=== PATIENT | female | born 1995 | race African-American/Black ===

== ENCOUNTER 2018-04-04 21:18 | Emergency (ER) | payer BC | END 2018-04-04 22:37 | disposition home or self-care (01) | LOC: ER 22:37 | DX: J02.9 Acute pharyngitis, unspecified (principal) | CPT/HCPCS: 99283 ==

== ENCOUNTER 2018-04-22 21:14 | Emergency (ER) | payer BC ==
[~2018-04-22] VITALS: Ht 160 cm; Wt 72.6 kg
[~2018-04-22 21:14] MED LIST: AMOX1TAB61 PO; PRED-220 PO
[2018-04-22] MEDS ORDERED: IV NORMAL SALINE 1000ML BAG 1,000 ML IV ONE (22:00)
[2018-04-22] MEDS ORDERED: DEXAMETHASONE SOD PHOS 4 MG/ML VIAL IV ONE (22:00)
[2018-04-22 22:23] LABS: BASO # 0.1 x10^3/uL (0.0-0.2); BASO % 0 % (0-3); EOS # 0.1 x10^3/uL (0.0-0.7); EOS % 1 % (0-3); HEMATOCRIT 38.6 % (36.0-47.0); HEMOGLOBIN 12.9 g/dL (12.0-15.5); LYMPH % 24 % (24-48); MEAN CORPUSCULAR HEMOGLOBIN 27 pg (25-35); MEAN CORPUSCULAR HGB CONC 34 g/dL (31-37); MEAN CORPUSCULAR VOLUME 81 fL (79-100); MONO # 1.2 x10^3/uL (0.0-1.1); MONO % 10 % (0-9); NEUT # 7.9 x10^3uL (1.8-7.7); NEUT % 65 % (31-73); PLATELET COUNT 257 x10^3/uL (140-400); RED BLOOD COUNT 4.77 x10^6/uL (3.50-5.40); RED CELL DISTRIBUTION WIDTH 14.7 % (11.5-14.5); WHITE BLOOD COUNT 12.3 x10^3/uL (4.0-11.0)
[2018-04-22 22:33] LABS: CALCIUM 9.7 mg/dL (8.5-10.1); CREATININE 1.1 mg/dL (0.6-1.0); GFR 76.6; POTASSIUM 3.6 mmol/L (3.5-5.1)
--- NOTE | 2018-04-22 22:35 | RAD ---
Indication: Soft tissue neck pain status post tonsillectomy. Trouble swallowing. TECHNIQUE: AP and lateral views of the neck soft tissue COMPARISON: None FINDINGS: The retropharyngeal soft tissue is within normal limits. No emphysema seen. No radiopaque foreign body. The air column is patent. Visualized apices are clear. Cervical spine within normal limits. No significant thickening of the epiglottis seen. IMPRESSION: No acute findings. Electronically signed by: Chicho Solis DO (04/22/2018 10:32 PM) [facility]
--- NOTE | 2018-04-22 23:26 | PHYS DOC ---
Past Medical History Past Medical History: Other Additional Past Medical Histor: TONSILITIS CHRONIC Past Surgical History: Tonsillectomy Alcohol Use: None Drug Use: None Adult General Chief Complaint Chief Complaint: SORE THROAT HPI HPI Patient is a 22 year old -[place] female who presents to emergency room today with complaints of painful swallowing today. She reports having her tonsils and adenoids removed on Friday April 20, [address] Oshea. Denies any fever, stridor, difficulty breathing, inability to swallow the nausea, or vomiting. She has been taking the antibiotic and oxycodone 7.5 mg tablets as they were prescribed by her surgeon. Currently she reports her pain as 8 out of 10 on the pain scale. Review of Systems Review of Systems Constitutional: Denies fever or chills [] HENT: Denies nasal congestion, stridor, or drooling. Reports sore throat and painful swallowing that increased today with a sensation of drainage in the back of her throat. Patient is post op day 2 after having her tonsils and adenoids removed on 04/20/18 Respiratory: Denies cough or shortness of breath [] GI: Denies nausea, or vomiting Integument: Denies rash or skin lesions [] Neurologic: Denies headache, focal weakness or sensory changes [] Current Medications Current Medications Current Medications Medications (Trade) Dose Ordered Sig/Oma Start Time Stop Time Status Last Admin Dose Admin Dexamethasone Sodium Phosphate (Decadron) 10 mg 1X ONCE 04/22/18 22:00 04/22/18 22:01 DC 04/22/18 22:34 10 MG Sodium Chloride 1,000 ml @ 1,000 mls/hr 1X ONCE 04/22/18 22:00 04/22/18 22:59 DC 04/22/18 22:12 1,000 MLS/HR Allergies Allergies Allergies Coded Allergies Type Severity Reaction Last Updated Verified No Known Drug Allergies 03/28/16 No Physical Exam Physical Exam Constitutional: Well developed, well nourished, mild distress, non-toxic appearance. [] HENT: Normocephalic, atraumatic; bilateral external ears normal, bilateral TMs normal; oropharynx moist, bilateral tonsil beds are scabbed with no active bleeding; uvula is noted to be edematous with no obstruction of the airway; nose normal. [] Eyes: Normal Neck: Normal range of motion, no tenderness, no lymphadenopathy, supple, no stridor. [] Cardiovascular: Heart rate regular rhythm, no murmur [] Lungs & Thorax: Bilateral breath sounds clear to auscultation [] Skin: Warm, dry, no erythema, no rash. [] Neurologic: Alert and oriented X 3, normal motor function, normal sensory function, no focal deficits noted. [] Psychologic: Affect normal, judgement normal, mood normal. [] Current Patient Data Vital Signs Vital Signs Date Time Temp Pulse Resp B/P (MAP) Pulse Ox O2 Delivery O2 Flow Rate FiO2 04/22/18 21:19 98.4 62 18 99/65 (76) 100 Room Air 98.4 Lab Values Laboratory Tests Test 04/22/18 22:10 White Blood Count 12.3 x10^3/uL (4.0-11.0) H Red Blood Count 4.77 x10^6/uL (3.50-5.40) Hemoglobin 12.9 g/dL (12.0-15.5) Hematocrit 38.6 % (36.0-47.0) Mean Corpuscular Volume 81 fL (79-100) Mean Corpuscular Hemoglobin 27 pg (25-35) Mean Corpuscular Hemoglobin Concent 34 g/dL (31-37) Red Cell Distribution Width 14.7 % (11.5-14.5) H Platelet Count 257 x10^3/uL (140-400) Neutrophils (%) (Auto) 65 % (31-73) Lymphocytes (%) (Auto) 24 % (24-48) Monocytes (%) (Auto) 10 % (0-9) H Eosinophils (%) (Auto) 1 % (0-3) Basophils (%) (Auto) 0 % (0-3) Neutrophils # (Auto) 7.9 x10^3uL (1.8-7.7) H Lymphocytes # (Auto) 3.0 x10^3/uL (1.0-4.8) Monocytes # (Auto) 1.2 x10^3/uL (0.0-1.1) H Eosinophils # (Auto) 0.1 x10^3/uL (0.0-0.7) Basophils # (Auto) 0.1 x10^3/uL (0.0-0.2) Sodium Level 139 mmol/L (136-145) Potassium Level 3.6 mmol/L (3.5-5.1) Chloride Level 105 mmol/L (98-107) Carbon Dioxide Level 28 mmol/L (21-32) Anion Gap 6 (6-14) Blood Urea Nitrogen 12 mg/dL (7-20) Creatinine 1.1 mg/dL (0.6-1.0) H Estimated GFR (Cockcroft-Gault) 76.6 Glucose Level 84 mg/dL (70-99) Calcium Level 9.7 mg/dL (8.5-10.1) Laboratory Tests 04/22/18 22:10 Laboratory Tests 04/22/18 22:10 EKG EKG [] Radiology/Procedures Radiology/Procedures Signed PATIENT: BENJA ASNCHES ACCOUNT: [id number] : 1995 LOCATION: ER AGE: 22 SEX: F EXAM STATUS: REG ER ORD. PHYSICIAN: AMILCAR RUSSELL MD REASON: pain, trouble swallowing post tonsillectomy PROCEDURE: NECK SOFT TISSUE Indication: Soft tissue neck pain status post tonsillectomy. Trouble swallowing. TECHNIQUE: AP and lateral views of the neck soft tissue COMPARISON: None FINDINGS: The retropharyngeal soft tissue is within normal limits. No emphysema seen. No radiopaque foreign body. The air column is patent. Visualized apices are clear. Cervical spine within normal limits. No significant thickening of the epiglottis seen. IMPRESSION: No acute findings. Electronically signed by: Chicho Solis DO (04/22/2018 10:32 PM) [facility] DICTATED and SIGNED BY: CHICHO SOLIS DO DATE: 04/22/182229 [] Course & Med Decision Making Course & Med Decision Making Pertinent Labs and Imaging studies reviewed. (See chart for details) Patient is a 22-year-old female who presented to the emergency room with complaints of increased pain with swallowing following a tonsillectomy and adenoidectomy on April 20, 2018. Soft tissue of the neck was negative for any acute findings. Labs were not concerning, WBC 12.3, [employer] Representatives. 1.1. Pt received 1 liter of NS and 10 mg of decadron IV in the department, reports feeling better after interventions. Patient was instructed to continue taking her medications as previously prescribed by her ear nose and throat doctor.Increased fluid intake, and follow- up with her doctor as scheduled. Patient verbalized an understanding of home care, medications, follow-up, and return to ED instructions and was in agreement with the plan of care. [ER PHYSICIAN ATTENDING NOTE: I have personally seen and examined the patient, and agree with the history, physical exam, and plan, as documented by mid-level provider. There is no stridor. There is some uvular edema, the airway is patent. There is no significant neck edema noted externally. There is mild diffuse tenderness to palpation to the neck structures.] Dragon Disclaimer Dragon Disclaimer This electronic medical record was generated, in whole or in part, using a voice recognition dictation system. Departure Departure Impression: Primary Impression: Post-operative pain Additional Impression: Uvular swelling Disposition: 01 HOME, SELF-CARE Condition: STABLE Referrals: CONTRERAS SALCEDO MD (PCP) Patient Instructions: Tonsillectomy, Care After, [id number] Additional Instructions: Continue taking your medications as prescribed. Follow-up with your ENT as scheduled. Return to the emergency room if her symptoms worsen. Problem Qualifiers JOELLE GILBERT APRN Apr 22, 2018 23:26 AMILCAR RUSSELL MD Apr 23, 2018 00:19
[2018-04-22 23:50] VITALS: BP 105/58
== END 2018-04-23 | disposition home or self-care (01) ==
LOC: ER 21:14
DX: G89.18 Other acute postprocedural pain (principal); J39.2 Other diseases of pharynx; Z90.49 Acquired absence of other specified parts of digestive tract
CPT/HCPCS: 36415; 70360; 80048; 85025; 96374; 99285; J1100; J7030

== ENCOUNTER 2019-08-22 00:48 | Emergency (ER) | payer BC ==
[~2019-08-22] VITALS: Ht 162.6 cm; Wt 65.8 kg
--- NOTE | 2019-08-22 02:24 | PHYS DOC ---
Past Medical History Past Medical History: Other Additional Past Medical Histor: TONSILITIS CHRONIC Past Surgical History: Tonsillectomy Alcohol Use: None Drug Use: None Adult General Chief Complaint Chief Complaint: ABDOMINAL PAIN IN HPI HPI 24-year-old female presents to the emergency department with complaints of lump suprapubically on the left side, decreased movement. Patient denies any fever, nausea, vomiting. Last menstrual period in April, she is currently 15 weeks , she is from [place] of town. She denies any vaginal bleeding, discharge, leakage of fluid. She is concerned about decreased movement. FHTs 150's. Nothing makes her pain worse, nothing makes her pain better Review of Systems Review of Systems Constitutional: Denies fever or chills [] Respiratory: Denies cough or shortness of breath [] Cardiovascular: No additional information not addressed in HPI [] GI: Denies abdominal pain, nausea, vomiting, bloody stools or diarrhea [] : Denies dysuria or hematuria [] Neurologic: Denies headache, focal weakness or sensory changes [] All other systems were reviewed and found to be within normal limits, except as documented in this note. Allergies Allergies Allergies Coded Allergies Type Severity Reaction Last Updated Verified No Known Drug Allergies 03/28/16 No Physical Exam Physical Exam Constitutional: Well developed, well nourished, no acute distress, non-toxic appearance. [] Eyes: PERRLA, EOMI, conjunctiva normal, no discharge. [] Cardiovascular:Heart rate regular rhythm, no murmur [] Lungs & Thorax: Bilateral breath sounds clear to auscultation [] Abdomen: Bowel sounds normal, soft, no tenderness, no masses, no pulsatile masses. [] Skin: Warm, dry, no erythema, no rash. [] Back: No tenderness, no CVA tenderness. [] Extremities: No tenderness,no edema. [] Neurologic: Alert and oriented X 3,no focal deficits noted. [] Psychologic: Affect normal, judgement normal, mood normal. [] Current Patient Data Vital Signs Vital Signs Date Time Temp Pulse Resp B/P (MAP) Pulse Ox O2 Delivery O2 Flow Rate FiO2 08/22/19 01:50 98.2 57 18 114/56 (75) 99 Room Air 98.2 Lab Values Laboratory Tests Test 08/22/19 01:47 08/22/19 03:11 Urine Collection Type Unknown Urine Color Yellow Urine Clarity Cloudy Urine pH 5.5 Urine Specific [place] 1.020 Urine Protein Negative mg/dL (NEG-TRACE) Urine Glucose (UA) Negative mg/dL (NEG) Urine Ketones (Stick) Negative mg/dL (NEG) Urine Blood Negative (NEG) Urine Nitrite Negative (NEG) Urine Bilirubin Negative (NEG) Urine Urobilinogen Dipstick 0.2 mg/dL (0.2 mg/dL) Urine Leukocyte Esterase Moderate (NEG) Urine RBC Occ /HPF (0-2) Urine WBC 20-40 /HPF (0-4) Urine Squamous Epithelial Cells Mod /LPF Urine Bacteria Many /HPF (0-FEW) Urine Mucus Mod /LPF POC Urine HCG, Qualitative Hcg positive (Negative) EKG EKG [] Radiology/Procedures Radiology/Procedures [facility] [address] [place] [address] IMAGING REPORT Signed PATIENT: BENJA SANCHES ACCOUNT: [id number] : 1995 LOCATION: ER AGE: 24 SEX: F EXAM STATUS: REG ER ORD. PHYSICIAN: FRANSISCO HOLT MD REASON: decreased FM, FHTs 150's PROCEDURE: OB LIMITED Study: US OB LIMITED Clinical Indication: Decreased movement. Comparison: None. Technique: Multiple grayscale images, color Doppler, and M-mode images of the uterus were obtained. Findings: Single live intrauterine in cephalic presentation. heart rate of 145 bpm. movement noted throughout the course of the study. Biparietal diameter of 3.35 cm. Head circumference of 12.4 cm. Abdominal circumference of 10.17 cm. Femur length of 2.46 cm. Amniotic fluid volume is within normal limits. Unremarkable placenta. Estimated weight of 167 g +/- 25 g. Estimated gestational age by sonography of 16 weeks 4 days. The right ovary measures 3.9 x 2.2 x 3.1 cm with normal Doppler flow. The left ovary measures 2.6 x 1.6 x 1.7 cm with normal Doppler flow. The patient reports a palpable lump to the left of midline. Targeted sonographic evaluation of this region reveals of bulging of the uterine contour. The subjacent myometrium is mildly heterogeneous but without a discrete mass. Limited survey revealing no concerning abnormality. Impression: 1. Single live intrauterine with an estimated gestational age by sonography of 16 weeks 4 days. Cephalic presentation. Unremarkable placenta. No abnormality seen on the limited survey. movement seen throughout the study and cardiac activity noted with a heart rate of 145 bpm. 2. Smooth bulging of the uterine contour in the region of palpable concern. The myometrium is somewhat heterogeneous at this location and a subtle fibroid is suspected. 3. Unremarkable ovaries. Electronically signed by: BENNY WATT MD (08/22/2019 4:12 AM) [id number] DICTATED and SIGNED BY: BENNY WATT MD DATE: 08/22/19 0412 [] Course & Med Decision Making Course & Med Decision Making Pertinent Labs and Imaging studies reviewed. (See chart for details) [] 24-year-old female presents to the emergency department with complaints of lump suprapubically on the left side, decreased movement. Patient denies any fever, nausea, vomiting. Last menstrual period in April, she is currently 15 weeks , she is from [place] of town. She denies any vaginal bleeding, discharge, leakage of fluid. She is concerned about decreased movement. FHTs 150's. Nothing makes her pain worse, nothing makes her pain better Labs reviewed, evidence of urinary tract infection appreciated US reveals evidence of appropriate intrauterine per dates, positive movement, she does have some area of concerning for possible fibroid within the uterus. Recommend antibiotic therapy for urinary tract infection Recommend follow up as an outpatient with her primary care physician, OB physician Precautions provided Leida Disclaimer Dragon Disclaimer This electronic medical record was generated, in whole or in part, using a voice recognition dictation system. Departure Departure Impression: Primary Impression: Abdominal pain in Additional Impression: UTI (urinary tract infection) Disposition: 01 HOME, SELF-CARE Condition: STABLE Referrals: CONTRERAS SALCEDO MD (PCP) Patient Instructions: Abdominal Pain During , [id number], - Urinary Tract Infection Additional Instructions: Recommend follow up with PCP 3 - 5 days Return to the ER with worsening symptoms, intractable pain, fever, altered mental status Tylenol/Motrin as needed for pain Take antibiotics as directed Scripts Cephalexin (KEFLEX) 500 Mg Capsule 2 CAP PO Q12HR for 5 Days, #20 CAP Prov: FRANSISCO HOLT MD 08/22/19 Problem Qualifiers Primary Impression: Abdominal pain in Trimester: second trimester Qualified Codes: O26.892 - Other specified related conditions, second trimester; R10.9 - Unspecified abdominal pain Additional Impression: UTI (urinary tract infection) Urinary tract infection type: site unspecified Hematuria presence: without hematuria Qualified Codes: N39.0 - Urinary tract infection, site not specified FRANSISCO HOLT MD Aug 22, 2019 02:24
[2019-08-22 03:17] LABS: BILIRUBIN,URINE NEGATIVE (NEG); CLARITY,URINE CLOUDY; COLOR,URINE YELLOW; NITRITE,URINE NEGATIVE (NEG); PH,URINE 5.5; PROTEIN,URINE NEGATIVE (NEG-TRACE); UROBILINOGEN,URINE 0.2 mg/dL (0.2 mg/dL)
[2019-08-22 03:27] LABS: BACTERIA,URINE MANY /HPF (0-FEW); RBC,URINE OCC /HPF (0-2); SQUAMOUS EPITHELIAL CELL,UR MOD /LPF; WBC,URINE 20-40 /HPF (0-4)
[2019-08-22 04:00] VITALS: BP 97/55
--- NOTE | 2019-08-22 04:15 | RAD ---
Study: US OB LIMITED Clinical Indication: Decreased movement. Comparison: None. Technique: Multiple grayscale images, color Doppler, and M-mode images of the uterus were obtained. Findings: Single live intrauterine in cephalic presentation. heart rate of 145 bpm. movement noted throughout the course of the study. Biparietal diameter of 3.35 cm. Head circumference of 12.4 cm. Abdominal circumference of 10.17 cm. Femur length of 2.46 cm. Amniotic fluid volume is within normal limits. Unremarkable placenta. Estimated weight of 167 g +/- 25 g. Estimated gestational age by sonography of 16 weeks 4 days. The right ovary measures 3.9 x 2.2 x 3.1 cm with normal Doppler flow. The left ovary measures 2.6 x 1.6 x 1.7 cm with normal Doppler flow. The patient reports a palpable lump to the left of midline. Targeted sonographic evaluation of this region reveals of bulging of the uterine contour. The subjacent myometrium is mildly heterogeneous but without a discrete mass. Limited survey revealing no concerning abnormality. Impression: 1. Single live intrauterine with an estimated gestational age by sonography of 16 weeks 4 days. Cephalic presentation. Unremarkable placenta. No abnormality seen on the limited survey. movement seen throughout the study and cardiac activity noted with a heart rate of 145 bpm. 2. Smooth bulging of the uterine contour in the region of palpable concern. The myometrium is somewhat heterogeneous at this location and a subtle fibroid is suspected. 3. Unremarkable ovaries. Electronically signed by: BENNY WATT MD (08/22/2019 4:12 AM) [id number]
[2019-08-22] MEDS ORDERED: CEPH-264 PO (04:26)
== END 2019-08-22 04:35 | disposition home or self-care (01) ==
LOC: ER 00:48
DX: O23.42 Unspecified infection of urinary tract in pregnancy, second trimester (principal); O99.511 Diseases of the respiratory system complicating pregnancy, first trimester; R10.32 Left lower quadrant pain; J35.01 Chronic tonsillitis; Z90.89 Acquired absence of other organs; Z3A.16 16 weeks gestation of pregnancy
CPT/HCPCS: 76815; 81001; 81025; 87086; 99285